=== PATIENT | female | born 1945 | race Caucasian/White ===

== ENCOUNTER 2016-11-02 21:20 | Observation (INO) | payer MEDICARE, MEDICAID ==
[~2016-11-02] VITALS: Ht 177.8 cm; Wt 79.8 kg
[2016-11-02] MEDS ORDERED: ED DILTIAZEM DRIP 125 ML IV ONE (22:11)
[2016-11-02] MEDS ORDERED: SODIUM CHLORIDE 0.9% 1,000 ML ONE (22:12)
[2016-11-02] MEDS ORDERED: DILTIAZEM 50 MG/10 ML VIAL IV ONE (22:12)
[2016-11-03] VITALS (11 sets, daily range): BP systolic 105–129; RESP 18–20; TEMP 97.8–98.9; Ht 177.8 cm; Wt 79.8 kg
[2016-11-03] MEDS ORDERED: ONDANSETRON 4 MG VIAL ONE (01:16)
[2016-11-03] MEDS ORDERED: SODIUM CHLORIDE 0.9% 1,000 ML ONE (01:24)
[2016-11-03] MEDS ORDERED: TEMAZEPAM 7.5 MG CAP PO PRN (01:45)
[2016-11-03] MEDS ORDERED: TRAMADOL 50 MG TAB PO PRN (01:45)
[2016-11-03] MEDS ORDERED: MORPHINE 2 MG/ML SYR IV PRN (01:45)
[2016-11-03] MEDS ORDERED: CARDIZEM 1 MG/ML DRIP 125 ML IV SCH (01:45)
[2016-11-03] MEDS ORDERED: NITROGLYCERIN SL 0.4 MG TAB SL PRN (01:45)
[2016-11-03] MEDS ORDERED: LORAZEPAM 0.5 MG TAB PO PRN (01:45)
[2016-11-03] MEDS ORDERED: ASPIRIN 81 MG CHEW TAB PO ONE (01:45)
[2016-11-03] MEDS ORDERED: NITROGLYCERIN 50 MG/250 ML IV PRN (01:45)
[2016-11-03] MEDS ORDERED: ACETAMINOPHEN 325 MG TAB PO PRN (01:45)
[2016-11-03] MEDS ORDERED: SODIUM CHLORIDE 0.9% FLUSH BAG 500 ML IV PRN (01:45)
[2016-11-03] MEDS ORDERED: SALINE FLUSH 10 ML FLUSH PRN (01:45)
[2016-11-03] MEDS ORDERED: ONDANSETRON 4 MG VIAL IV PRN (01:45)
[2016-11-03] MEDS ORDERED: DOCUSATE SOD 100 MG CAP PO PRN (01:45)
[2016-11-03] MEDS ORDERED: PROMETHAZINE 25 MG/ML VIAL ONE (02:45)
[2016-11-03] MEDS ORDERED: SODIUM CHLORIDE 0.9% 50 ML IV ONE (02:46)
[2016-11-03] MEDS ORDERED: SODIUM CHLORIDE 0.9% 100 ML IV ONE (02:46)
[2016-11-03] MEDS ORDERED: CEFTRIAXONE 1 GM VIAL ONE (02:46)
[2016-11-03] MEDS ORDERED: ASPIRIN EC 81 MG TAB PO SCH (08:00)
[2016-11-03] MEDS ORDERED: SALINE FLUSH 10 ML FLUSH SCH (08:00)
[2016-11-03] MEDS ORDERED: DILTIAZEM CD 120 MG CAP PO ONE (14:15)
[2016-11-03] MEDS ORDERED: METOPROLOL TART 25 MG TAB PO SCH (14:16)
[2016-11-03] MEDS ORDERED: OXYBUTYNIN XL 5 MG TAB PO SCH (14:16)
[2016-11-03] MEDS ORDERED: FOLIC ACID 1 MG TAB PO SCH (14:16)
[2016-11-03] MEDS ORDERED: TRIMETH/SULFAMETH 160/800 TAB PO SCH (14:31)
[2016-11-03] MEDS ORDERED: APIXABAN 5 MG TAB PO SCH (21:00)
[2016-11-04] MEDS ORDERED: EMBREL IM SCH (09:00)
== END 2016-11-03 14:22 | disposition home or self-care (01) ==
LOC: ENRESERVTM → ENRESERVDT → ER 21:20 → ENPENDDIS 21:21 → EMR 21:21 → 4THE 11-03 03:29
PROVIDERS: ADMIT Internal Medicine Cardiovascular Disease; ATTEND Internal Medicine Cardiovascular Disease
DX: I48.2 Chronic atrial fibrillation (principal); N30.00 Acute cystitis without hematuria; I10 Essential (primary) hypertension; M06.9 Rheumatoid arthritis, unspecified; Z96.653 Presence of artificial knee joint, bilateral; Z96.643 Presence of artificial hip joint, bilateral; Z79.01 Long term (current) use of anticoagulants; Z79.899 Other long term (current) drug therapy
CPT/HCPCS: 36415; 71010; 80053; 81001; 82553; 83605; 84484; 85025; 87040; 87077; 87088; 87186; 93005; 96361; 96365; 96366; 96375; 99291; G0378; J0696; J2405; J2550; 94799